=== PATIENT | male | born 1945 | race Caucasian/White ===

== ENCOUNTER 2022-07-06 23:26 | Inpatient (IN) | payer MEDICARE, OTHER ==
[~2022-07-06] VITALS: Ht 162.6 cm; Wt 59.9 kg
[2022-07-06 23:40] VITALS: BP 143/78
[2022-07-07] MEDS ORDERED: MAGNESIUM HYDROXIDE 30 ML LIQUID UDC PO PRN
[2022-07-07] MEDS ORDERED: ACETAMINOPHEN 325 MG TABLET PO PRN ×2 (00:30)
[2022-07-07] MEDS ORDERED: ONDANSETRON 4 MG/2 ML VIAL IV PRN ×2 (00:30)
[2022-07-07] MEDS ORDERED: LORAZEPAM 2 MG/1 ML VIAL IV PRN ×2 (00:30)
[2022-07-07] MEDS ORDERED: levETIRAcetam 500 MG/5 ML VIAL IV ONE (00:38)
[2022-07-07] MEDS: levETIRAcetam IV 500 MG in IV DEXTROSE 5% 100 ML IV SCH ×3 (01:03→22:21)
[2022-07-07 04:00] VITALS: BP 127/69
--- NOTE | 2022-07-07 05:32 | NUR ---
Direct admit from [place], patient is SR on monitor with some PACs. Denies chest pain or SOB. Pt is AOx4, able to communicate needs. IV site intact. Pt able to use bedside commode with assistance. Tolerated all medications given. No distress noted. No seizure activity noted. Will endorse to day shift.
[2022-07-07 06:41] LABS: HEMATOCRIT 45.8 % (36.7-47.1); MEAN CORPUSCULAR HEMOGLOBIN 33.8 uug (23.8-33.4); MEAN CORPUSCULAR VOLUME 100.2 fL (73.0-96.2); PLATELET COUNT (AUTO) 250 K/uL (152-348)
[2022-07-07] MEDS: PANTOPRAZOLE SODIUM 40 MG TABLET.DR PO SCH (06:42)
[2022-07-07 07:03] LABS: CREATININE 1.1 mg/dL (0.6-1.3); MAGNESIUM 1.9 mg/dL (1.8-2.4); PHOSPHOROUS 3.6 mg/dL (2.5-4.9); POTASSIUM 3.8 mmol/L (3.5-5.1)
[2022-07-07 07:07] LABS: THYROID STIMULATING HORMONE 0.451 mIU/mL (0.358-3.740)
--- NOTE | 2022-07-07 08:15 | NUR ---
PT AO X4.NO ACUTE DISTRESS NOTED.NO SOB. NO PAIN COMPLAIN. ON 1L NC SATURATING 97-98%. PT AMBULATORY WITH STAND BY ASSIST. CAN MAKE HIS NEEDS KNOWN. EEG, US RIYA CAROTID AND ECG F/U. CONT TO MONITOR.
[2022-07-07] MEDS ORDERED: NAPR500T6 PO (10:12)
[2022-07-07] MEDS ORDERED: CILO100T PO (10:12)
[2022-07-07] MEDS ORDERED: TAMS-3 PO (10:12)
[2022-07-07] MEDS ORDERED: CLOP75TA33 PO (10:12)
[2022-07-07] MEDS ORDERED: DOCU100C36 PO (10:12)
[2022-07-07] MEDS ORDERED: ATOR20TA PO (10:12)
[2022-07-07] MEDS ORDERED: ACYC400T19 PO (10:12)
[2022-07-07] MEDS ORDERED: CARV25TA2 PO (10:12)
[2022-07-07] MEDS ORDERED: HYDR-3974 PO (10:12)
[2022-07-07] MEDS ORDERED: FINA5TAB11 PO (10:12)
[2022-07-07] MEDS ORDERED: ISOS60TA72 PO (10:12)
[2022-07-07 11:09] LABS: CREATINE KINASE, TOTAL 550 U/L (39-308)
[2022-07-07] MEDS ORDERED: HYDROCODONE/APAP 5-325MG TABLET PO PRN ×2 (11:30)
[2022-07-07 11:51] LABS: *BILIRUBIN,URIN NEGATIVE (NEGATIVE); *CLARITY,URINE CLEAR (CLEAR); *COLOR,URINE YELLOW (YELLOW); *KETONES,URINE NEGATIVE (NEGATIVE); *UROBILINOGEN,URINE 0.2 E.U./dl (NORMAL); LEUKOCYTE ESTERASE ,URINE NEGATIVE (NEGATIVE); NITRITE, URINE NEGATIVE (NEGATIVE); UGLUCOSE NEGATIVE (NEGATIVE)
[2022-07-07 11:52] LABS: *BLOOD, URINE TRACE (NEGATIVE)
[2022-07-07 12:00] VITALS: BP 128/60
[2022-07-07 12:14] LABS: BACTERIA,URINE NONE SEEN /HPF (NONE SEEN); SQUAMOUS EPITHELIAL CELL,UR NONE SEEN /HPF (NONE SEEN); WBC,URINE NONE SEEN /HPF (0-3)
[2022-07-07 12:15] LABS: RBC,URINE 0-3 /HPF (0-3)
[2022-07-07] MEDS: CLOPIDOGREL 75 MG TABLET PO SCH (12:57)
[2022-07-07] MEDS: ISOSORBIDE MONONITRATE 30 MG TAB.SR.24H PO SCH (12:57)
[2022-07-07 14:00] LABS: BILIRUBIN,DIRECT 0.1 mg/dL (0.0-0.2); BILIRUBIN,TOTAL 0.7 mg/dL (0.2-1.0)
--- NOTE | 2022-07-07 14:00 | NUR ---
PT COMPLAIN OF PAIN ON BLADDER AREA. BLADDER DISTENSION NOTED. BLADDER SCAN DONE 900ML RESIDUAL NOTED. MD NOTIFIED. IN AND OUT CATH PERFORMED DRAINED 1000ML URINE. PT VERBALIZED RELIEF.
[2022-07-07 16:00] VITALS: BP 115/66
[2022-07-07] MEDS ORDERED: IV LACTATED RINGERS SOLUTION 1,000 ML IV PRN (16:30)
[2022-07-07] MEDS ORDERED: CARVEDILOL 25 MG TABLET PO SCH (17:00)
[2022-07-07] MEDS: DOCUSATE SODIUM 100 MG CAPSULE PO SCH (17:10)
[2022-07-07] MEDS: CILOSTAZOL 100 MG TABLET PO SCH (17:10)
[2022-07-07 20:00] VITALS: BP 98/53
[2022-07-07] MEDS ORDERED: TAMSULOSIN HCL 0.4 MG CAP.SR.24H PO SCH (21:00)
[2022-07-07] MEDS ORDERED: ATORVASTATIN 20 MG TABLET PO SCH (21:00)
--- NOTE | 2022-07-07 21:00 | NUR ---
awake, alert and oriented, no acute distress noted.stand by assist,up to br, voided 200 ml.no bladder distention noted. needs attended to.ivf infusing well w/o any problems.on tele sinus 76.
[2022-07-08] VITALS: BP 105/56
--- NOTE | 2022-07-08 01:39 | NUR ---
HAD A LARGE BOWEL MOVEMENTS, CLEANED AND KEPT DRY,, OXYGEN INHALATION AT 2L/MIN VIA NASAL CANNULA SATURATION WAS LOW 92%. -
--- NOTE | 2022-07-08 01:42 | NUR ---
COMPLAINED OF GENERALIZED PAIN, MEDICATED WITH NORCO 1 TAB, RELIEF AFFORDED.SLEPT ON AND OFF. MONITORED FOR SAFETY AND COMFORT. CALL [facility]ITE W/I REACH.
--- NOTE | 2022-07-08 01:47 | NUR ---
ON DNR STATUS,VITAL SIGNS W/I NORMAL LIMITS.PT VERY IMPULSIVE., FREQUENT REMINDERS DONE.R
[2022-07-08 04:00] VITALS: BP 102/54
[2022-07-08] MEDS: PANTOPRAZOLE SODIUM 40 MG TABLET.DR PO SCH (06:21)
[2022-07-08 08:35] VITALS: BP 131/77
[2022-07-08 08:37] VITALS: BP 131/77
[2022-07-08] MEDS: CILOSTAZOL 100 MG TABLET PO SCH (08:37)
[2022-07-08] MEDS: DOCUSATE SODIUM 100 MG CAPSULE PO SCH (08:37)
[2022-07-08] MEDS: levETIRAcetam IV 500 MG in IV DEXTROSE 5% 100 ML IV SCH (08:37)
[2022-07-08] MEDS: ISOSORBIDE MONONITRATE 30 MG TAB.SR.24H PO SCH (08:37)
[2022-07-08] MEDS: CLOPIDOGREL 75 MG TABLET PO SCH (08:38)
[2022-07-08 08:54] LABS: HEMATOCRIT 48.2 % (36.7-47.1); MEAN CORPUSCULAR HEMOGLOBIN 33.4 uug (23.8-33.4); MEAN CORPUSCULAR VOLUME 100.8 fL (73.0-96.2); PLATELET COUNT (AUTO) 255 K/uL (152-348)
[2022-07-08] MEDS ORDERED: CARVEDILOL 12.5 MG TABLET PO SCH (09:00)
[2022-07-08] MEDS ORDERED: FINASTERIDE 5 MG TABLET PO SCH (09:00)
[2022-07-08 09:11] LABS: CREATININE 1.1 mg/dL (0.6-1.3); PHOSPHOROUS 3.1 mg/dL (2.5-4.9); POTASSIUM 3.6 mmol/L (3.5-5.1)
[2022-07-08] MEDS ORDERED: LEVE500T9 PO (11:33)
[2022-07-08] MEDS ORDERED: CARV12.52 PO (11:33)
--- NOTE | 2022-07-08 11:35 | NUR ---
pt complain of bladder pain. bladder distension noted. check with bladder scan 900 ml residual. md notified. md ordered harpre cath with a leg bag. fc inserted drained 900ml urine.
--- NOTE | 2022-07-08 11:55 | NUR ---
pt will be discharge to home.
--- NOTE | 2022-07-08 12:15 | NUR ---
pt is discharge. vitals wnl. pt will go home with harper cath. fc patent and draining well. pt is ambulating well in his own. pt left via wheelchair going to their private car. pt son will drive pt home.
[2022-07-08] MEDS ORDERED: levETIRAcetam 500 MG TABLET PO SCH (21:00)
== END 2022-07-08 12:15 | disposition home or self-care (01) | DRG 74 ==
LOC: TELE3 23:26
PROVIDERS: ADMIT Nurse Practitioner Family; ATTEND Nurse Practitioner Family
DX: G90.8 Other disorders of autonomic nervous system (principal); E87.2 Acidosis; E78.5 Hyperlipidemia, unspecified; Z20.822 Contact with and (suspected) exposure to COVID-19; Z87.891 Personal history of nicotine dependence; Z85.51 Personal history of malignant neoplasm of bladder; I25.10 Atherosclerotic heart disease of native coronary artery without angina pectoris; Z98.61 Coronary angioplasty status; I10 Essential (primary) hypertension; Z85.118 Personal history of other malignant neoplasm of bronchus and lung; R53.1 Weakness; Z85.841 Personal history of malignant neoplasm of brain; R56.9 Unspecified convulsions; Z66 Do not resuscitate
CPT/HCPCS: 36415; 71045; 71250; 83605; 83735; 84100; 84443; 84484; 85025; 93307; 93880; A4663; G0378; J1953; J2060; J7120